=== PATIENT | female | born 1990 | race Caucasian/White ===

== ENCOUNTER 2017-05-19 14:08 | Emergency (ER) | payer OTHER ==
--- NOTE | 2017-05-19 15:11 | UC ---
Abdominal Pain Female HPI - HPI Summary HPI Summary: On 05/17 this patient developed severe nausea/epigastric pain and vomiting x 8 no blood in vomitus these symptoms completely resolved by 05/18 on the evening of 05/18 she developed diarrhea since then she has had 15 episodes of green diarrhea no light headedness has intermittent brief epeisodes of crampy lower abd pain prior to diarrhea no f/c She has had gi trouble in past she is supposed to have a w/u for Crohn's disease but has not done so - History of Current Complaint Chief Complaint: UCAbdominalPain Stated Complaint: ABD PAIN DIARRHEA Time Seen by Provider: 05/19/17 14:41 Hx Obtained From: Patient Hx Last Menstrual Period: one week ago Onset/Duration: Gradual Onset, Other Timing: Intermittent Episodes Lasting: - minutes Severity Currently: None Pain Intensity: 0 Pain Scale Used: 0-10 Numeric Location: Other - lower abd pain prior to diarrhea Radiates: No Character: Cramping Alleviating Factor(s): Bowel Movement Associated Signs and Symptoms: Positive: Diarrhea Allergies/Adverse Reactions: Allergies Allergy/AdvReac Type Severity Reaction Status Date / Time Sulfa Antibiotics Allergy Swelling Verified 05/19/17 14:37 Home Medications: Home Medications Ondansetron TAB* [Zofran 4 MG Tab*] 1 - 2 tab PO TID 05/19/17 [History Confirmed 05/19/17] Sucralfate TAB* [Carafate*] 1 tab PO QID 05/19/17 [History Confirmed 05/19/17] PMH/Surg Hx/FS Hx/Imm Hx Previously Healthy: Yes - Surgical History Surgical History: None - Family History Known Family History: Positive: Other - cousin with Crohns Negative: Cardiac Disease, Hypertension, Diabetes - Social History Alcohol Use: Occasionally Substance Use Type: None Smoking Status (MU): Never Smoked Tobacco Review of Systems Constitutional: Negative Skin: Negative Eyes: Negative ENT: Negative Respiratory: Negative Cardiovascular: Negative Gastrointestinal: Abdominal Pain, Diarrhea Genitourinary: Negative Motor: Negative Neurovascular: Negative Musculoskeletal: Negative Neurological: Negative Psychological: Negative Is Patient Immunocompromised?: No All Other Systems Reviewed And Are Negative: Yes Physical Exam Triage Information Reviewed: Yes Appearance: Well-Appearing, No Pain Distress, Well-Nourished, Thin Vital Signs: Initial Vital Signs Temp 98.2 F 05/19/17 14:30 Pulse 109 05/19/17 14:30 Resp 18 05/19/17 14:30 BP 155/92 05/19/17 14:30 Pulse Ox 99 05/19/17 14:30 Vital Signs Reviewed: Yes Eyes: Positive: Conjunctiva Clear ENT: Positive: Hearing grossly normal, Uvula midline, Other - moist mucous membranes. Negative: Nasal congestion, Nasal drainage, Trismus, Muffled voice, Hoarse voice Neck: Positive: Supple, Nontender, No Lymphadenopathy Respiratory: Positive: Lungs clear, Normal breath sounds, No respiratory distress Cardiovascular: Positive: RRR, No Murmur Abdomen Description: Positive: Nontender, No Organomegaly, Soft. Negative: CVA Tenderness (R), CVA Tenderness (L), Distended Bowel Sounds: Positive: Present, Hyperactive Musculoskeletal: Positive: ROM Intact, No Edema Neurological Exam: Normal Psychological Exam: Normal Skin Exam: Normal Re-Evaluation - Re-Evaluation First Eval Re-Evaluation Time: 15:10 Change: Improved - pulse low 80s Abd Pain Female Course/Dx - Course Course Of Treatment: pt declines IV fluids. pt declines stool kit for studies - Differential Dx/Diagnosis Provider Diagnoses: Acute diarrhea. suspect gastroenteritis Discharge - Discharge Plan Condition: Stable Disposition: HOME Patient Education Materials: Acute Diarrhea (ED) Additional Instructions: recheck for new or worsening symptoms I suggest you follow up with a wort extractor when you get home
[2017-05-19 15:19] VITALS: BP 150/87
== END 2017-05-19 15:17 | disposition home or self-care (01) ==
LOC: UCEAST 14:08
DX: R19.7 Diarrhea, unspecified (principal); R11.2 Nausea with vomiting, unspecified; R10.13 Epigastric pain; Z88.2 Allergy status to sulfonamides
CPT/HCPCS: 99202; G0463